=== PATIENT | female | born 1965 | race Caucasian/White ===

== ENCOUNTER 2020-04-03 10:21 | Emergency (ER) | payer OTHER ==
--- NOTE | 2020-04-03 12:16 | EDPHYS ---
Physician Documentation [facility] Name: Renata Raphael Age: 54 yrs Sex: Female : 1965 Arrival Date: 04/03/2020 Time: 10:23 Bed 23 Private MD: [place] Physician Stefano Dangelo HPI: 04/03 13:32 This 54 yrs old Female presents to ER via Ambulatory with complaints of snw Urinary Problem. 13:32 Onset: The symptoms/episode began/occurred gradually, 1.5 week(s) ago, and became snw persistent. Associated signs and symptoms: Pertinent positives: fatigue. Modifying factors: The patient symptoms are alleviated by nothing. The patient has experienced similar episodes in the past, multiple times. The patient has not recently seen a physician. Historical: - Allergies: 10:52 Demerol (Anaphylaxis); aa5 10:52 Vicodin; aa5 10:52 Percocet; aa5 10:52 NSAIDS; aa5 10:52 Latex, Natural Rubber; aa5 10:52 Tape; aa5 10:52 Augmentin; aa5 10:52 Benadryl; aa5 10:52 Bactrim; aa5 10:52 Versed; aa5 10:52 tramadol; aa5 10:52 BuSpar; aa5 10:52 Ciprofloxacin; aa5 10:52 Solu-Medrol; aa5 - PMHx: 10:52 CDiff; Elmo's disease; SIADH; Ovarian failure; Osteoporosis; aa5 - Immunization history:: Adult Immunizations unknown. - Social history:: Smoking status: Patient denies any tobacco usage or history of. ROS: 13:31 Constitutional: Negative for fever, chills, and weight loss, + malaise and generalized snw fatigue Eyes: Negative for injury, pain, redness, and discharge, ENT: Negative for injury, pain, and discharge, Neck: Negative for injury, pain, and swelling, Cardiovascular: Negative for chest pain, palpitations, and edema, Respiratory: Negative for shortness of breath, cough, wheezing, and pleuritic chest pain, Abdomen/GI: Negative for abdominal pain, nausea, vomiting, diarrhea, and constipation, MS/Extremity: Negative for injury and deformity, Skin: Negative for injury, rash, and discoloration, Neuro: Negative for headache, weakness, numbness, tingling, and seizure. 13:31 Back: Positive for flank pain, bilaterally. 13:31 : Positive for urinary symptoms, urinary frequency, small amounts, burning with urination, foul smelling urine. Exam: 13:30 Head/Face: Normocephalic, atraumatic. Eyes: Pupils equal round and reactive to light, snw extra-ocular motions intact. Lids and lashes normal. Conjunctiva and sclera are non-icteric and not injected. Cornea within normal limits. Periorbital areas with no swelling, redness, or edema. ENT: Nares patent. No nasal discharge, no septal abnormalities noted. Tympanic membranes are normal and external auditory canals are clear. Oropharynx with no redness, swelling, or masses, exudates, or evidence of obstruction, uvula midline. Mucous membranes moist. Neck: Trachea midline, no thyromegaly or masses palpated, and no cervical lymphadenopathy. Supple, full range of motion without nuchal rigidity, or vertebral point tenderness. No Meningismus. Chest/axilla: Normal chest wall appearance and motion. Nontender with no deformity. No lesions are appreciated. Cardiovascular: Regular rate and rhythm with a normal S1 and S2. No gallops, murmurs, or rubs. Normal PMI, no JVD. No pulse deficits. Respiratory: Lungs have equal breath sounds bilaterally, clear to auscultation and percussion. No rales, rhonchi or wheezes noted. No increased work of breathing, no retractions or nasal flaring. Abdomen/GI: Soft, non-tender, with normal bowel sounds. No distension or tympany. No guarding or rebound. No evidence of tenderness throughout. Skin: Warm, dry with normal turgor. Normal color with no rashes, no lesions, and no evidence of cellulitis. MS/ Extremity: Pulses equal, no cyanosis. Neurovascular intact. Full, normal range of motion. Neuro: Awake and alert, GCS 15, oriented to person, place, time, and situation. Cranial nerves II-XII grossly intact. Motor strength 5/5 in all extremities. Sensory grossly intact. Cerebellar exam normal. Normal gait. Psych: Awake, alert, with orientation to person, place and time. Behavior, mood, and affect are within normal limits. 13:30 Constitutional: The patient appears alert, awake. 13:30 Back: pain, that is mild, of the left mid back and right mid back, normal spinal alignment noted. Vital Signs: 10:47 BP 107 / 68; Pulse 76; Resp 18 S; Temp 98.6(O); Pulse Ox 99% on R/A; Weight 61.23 kg aa5 (R); Height 5 ft. 7 in. (170.18 cm) (R); 10:47 Body Mass Index 21.14 (61.23 kg, 170.18 cm) aa5 MDM: 11:23 Patient medically screened. [facility] 13:33 Data reviewed: vital signs, nurses notes. Data interpreted: Pulse oximetry: on room air snw is 99 %. Interpretation: acceptable. Counseling: I had a detailed discussion with the patient and/or guardian regarding: the historical points, exam findings, and any diagnostic results supporting the discharge/admit diagnosis, lab results, the need for outpatient follow up, to return to the emergency department if symptoms worsen or persist or if there are any questions or concerns that arise at home. ED course: has been taking stress dose steroids. 04/03 10:52 Order name: Urine Culture snw 04/03 10:52 Order name: Urine Microscopic Only; Complete Time: 12:32 snw 04/03 10:52 Order name: Urine Dipstick-Ancillary (obtain specimen); Complete Time: 11:31 snw 04/03 11:35 Order name: Urine Dipstick--Ancillary (enter results); Complete Time: 12:32 bd 04/03 11:35 Order name: Urine --Ancillary (enter results); Complete Time: 12:32 bd Administered Medications: 12:49 Drug: KeFLEX 500 mg Route: PO; aa5 12:49 Follow up: Response: Medication administered at discharge. aa5 Disposition: 16:33 Co-signature as Attending Physician, Stefano Dangelo MD I agree with the assessment and [facility] plan of care. Disposition: 04/03/20 12:16 Discharged to Home. Impression: Urinary tract infection, site not specified. - Condition is Stable. - Discharge Instructions: Elmo Disease, Urinary Tract Infection, Adult, Rehydration, Adult. - Prescriptions for Cortef 20 mg Oral tablet - take 1 tablet by ORAL route once daily with food; 15 tablet. Keflex 500 mg Oral Capsule - take 1 capsule by ORAL route every 8 hours for 10 days; 30 capsule. - Medication Reconciliation Form, Thank You Letter, Antibiotic Education, Prescription Opioid Use form. - Follow up: Private Physician; When: 1 - 2 days; Reason: Recheck today's complaints, Continuance of care, Re-evaluation by your physician. Follow up: Emergency Department; When: As needed; Reason: Worsening of condition. Signatures: Dispatcher [employer] EDStefano Arevalo MD MD cha Waters, Shelly, RETAIL CLERK-C RETAIL CLERK-Csnw Mia Mckinney, RN RN aa5 Corrections: (The following items were deleted from the chart) 12:49 12:16 04/03/2020 12:16 Discharged to Home. Impression: Urinary tract infection, site aa5 not specified. Condition is Stable. Forms are Medication Reconciliation Form, Thank You Letter, Antibiotic Education, Prescription Opioid Use. Follow up: Private Physician; When: 1 - 2 days; Reason: Recheck today's complaints, Continuance of care, Re-evaluation by your physician. Follow up: Emergency Department; When: As needed; Reason: Worsening of condition. snw
--- NOTE | 2020-04-03 12:16 | ER ---
Nurse's Notes [facility] Name: Renata Raphael Age: 54 yrs Sex: Female : 1965 Arrival Date: 04/03/2020 Time: 10:23 Bed 23 Private MD: Diagnosis: Urinary tract infection, site not specified Presentation: 04/03 10:47 Chief complaint: Patient states: burning with urination x 1 1/2 weeks. Coronavirus aa5 screen: Client denies travel out of the [place] in the last 14 days. At this time, the client does not indicate any symptoms associated with coronavirus-19. Ebola Screen: Patient negative for fever greater than or equal to 101.5 degrees Fahrenheit, and additional compatible Ebola Virus Disease symptoms. Initial Sepsis Screen: Does the patient meet any 2 criteria? No. Patient's initial sepsis screen is negative. Does the patient have a suspected source of infection? No. Patient's initial sepsis screen is negative. Risk Assessment: Do you want to hurt yourself or someone else? Patient reports no desire to harm self or others. Onset of symptoms was February 2020. 10:47 Method Of Arrival: Ambulatory aa5 10:47 Acuity: RENY 4 aa5 Triage Assessment: 10:55 General: Appears in no apparent distress. comfortable, Behavior is calm, cooperative. aa5 Pain: Denies pain. EENT: No signs and/or symptoms were reported regarding the EENT system. Neuro: Level of Consciousness is awake, alert, obeys commands, Oriented to person, place, time, situation. Cardiovascular: Patient's skin is warm and dry. Respiratory: Airway is patent Respiratory effort is even, unlabored, Respiratory pattern is regular, symmetrical. GI: No signs and/or symptoms were reported involving the gastrointestinal system. : Reports burning with urination. Derm: Skin is pink, warm \T\ dry. Musculoskeletal: Range of motion: intact in all extremities. Historical: - Allergies: 10:52 Demerol (Anaphylaxis); aa5 10:52 Vicodin; aa5 10:52 Percocet; aa5 10:52 NSAIDS; aa5 10:52 Latex, Natural Rubber; aa5 10:52 Tape; aa5 10:52 Augmentin; aa5 10:52 Benadryl; aa5 10:52 Bactrim; aa5 10:52 Versed; aa5 10:52 tramadol; aa5 10:52 BuSpar; aa5 10:52 Ciprofloxacin; aa5 10:52 Solu-Medrol; aa5 - PMHx: 10:52 CDiff; [place]'s disease; SIADH; Ovarian failure; Osteoporosis; aa5 - Immunization history:: Adult Immunizations unknown. - Social history:: Smoking status: Patient denies any tobacco usage or history of. Assessment: 12:48 Reassessment: Patient is alert, oriented x 3, equal unlabored respirations, skin aa5 warm/dry/pink. Vital Signs: 10:47 BP 107 / 68; Pulse 76; Resp 18 S; Temp 98.6(O); Pulse Ox 99% on R/A; Weight 61.23 kg aa5 (R); Height 5 ft. 7 in. (170.18 cm) (R); 10:47 Body Mass Index 21.14 (61.23 kg, 170.18 cm) aa5 ED Course: 10:23 Patient arrived in ED. rg4 10:34 [facility]els[facility]C [facility] snw 10:34 Stefano Dangelo MD is Attending Physician. snw 10:47 Arm band placed on. aa5 10:49 Triage completed. aa5 11:22 Patient has correct armband on for positive identification. Bed in low position. Call aa5 light in reach. Side rails up X 1. 11:30 Mia Mckinney, RN is Primary Nurse. aa5 12:48 No provider procedures requiring assistance completed. Patient did not have IV access aa5 during this emergency room visit. Administered Medications: 12:49 Drug: KeFLEX 500 mg Route: PO; aa5 12:49 Follow up: Response: Medication administered at discharge. aa5 Outcome: 12:16 Discharge ordered by . snw 12:48 Discharged to home ambulatory. aa5 12:48 Condition: stable 12:48 Discharge instructions given to patient, Instructed on discharge instructions, follow up and referral plans. medication usage, Demonstrated understanding of instructions, follow-up care, medications, Prescriptions given X 2. 12:49 Patient left the ED. aa5 Signatures: Kelsie Welch FNP-C CRACKER SPRAYER-Csnw Mia Mckinney, RN RN aa5 Maricarmen Chavira rg4
[2020-04-03 12:18] LABS: Urine Bacteria <20 /HPF (<20); Urine Mucus 1+ /HPF (NONE SEEN); Urine RBC <5 /HPF (NONE SEEN)
[2020-04-03 12:22] LABS: Urine Blood NEGATIVE (NEG); Urine Glucose NEGATIVE (NEG); Urine Protein NEGATIVE (NEG)
[2020-04-03 12:55] VITALS: BP 107/68; TEMP 98.6; O2SAT 99
[2020-04-03] MEDS ORDERED: CEPHALEXIN 250 MG CAP ONE (13:02)
== END 2020-04-03 12:49 | disposition home or self-care (01) ==
LOC: ER 10:21
DX: N39.0 Urinary tract infection, site not specified (principal); Z88.1 Allergy status to other antibiotic agents; Z88.3 Allergy status to other anti-infective agents; Z88.5 Allergy status to narcotic agent; Z88.6 Allergy status to analgesic agent; Z88.8 Allergy status to other drugs, medicaments and biological substances; Z91.040 Latex allergy status; Z91.048 Other nonmedicinal substance allergy status
CPT/HCPCS: 81003; 81015; 81025; 87086; 87088; 99283

== ENCOUNTER 2023-11-15 17:18 | Emergency (ER) | payer OTHER, SELFPAY ==
[2023-11-15] MEDS ORDERED: ONDANSETRON 4 MG/2 ML VIAL ONE (17:43)
[2023-11-15] MEDS ORDERED: MORPHINE 4 MG/ML SYR ONE ×2 (17:43→18:53)
[2023-11-15] MEDS ORDERED: NA CHLORIDE 0.9% 1,000 ML ONE (17:44)
[2023-11-15] MEDS ORDERED: FAMOTIDINE 20 MG/2 ML VIAL IV ONE (17:56)
[2023-11-15 18:01] LABS: Absolute Basophils 0.1 K/uL (0-0.5); Absolute Eosinophils 0.6 K/uL (0-0.5); Absolute Lymphocytes (CBC) 3.1 K/uL (0.7-4.9); Absolute Monocytes 0.9 K/uL (0.1-1.3); Absolute Neutrophil 4.6 K/uL (1.8-8.0); Basophils % 0.8 % (0-1.3); Eosinophils % 6.4 % (0-4.4); Hematocrit 43.9 % (36.0-45.0); Hemoglobin 14.7 g/dL (12.0-15.0); Lymphocytes % 33.4 % (15.3-44.8); MCH 29.3 pg (27.0-35.0); MCHC 33.6 g/dL (32.0-36.0); MCV 87.3 fL (80-100); MPV 9.3 fL (7.6-11.3); Monocytes % 9.8 % (3.3-12.3); Neutrophils % 49.6 % (41.7-73.7); Nucleated Red Blood Cells % 0.1 % (0-0); Platelets 222 thou/uL (152-406); RBC Red Blood Cell Count 5.03 M/uL (3.86-4.86); Red Cell Distribution Width 13.3 % (12.1-15.2)
[2023-11-15 18:13] LABS: Specific Gravity 1.009 (1.005-1.030)
[2023-11-15 18:14] LABS: Specific Gravity 1.009 (1.005-1.030); Sqamous Epithelial <5 /HPF (None Seen); Urine Bacteria None Seen /HPF (<20); Urine Bilirubin NEGATIVE (Negative); Urine Blood Negative (Negative); Urine Clarity Extremely Turbid (Clear); Urine Color Light-Yellow (Yellow); Urine Culture Reflex Order REFLEXED; Urine Glucose NEGATIVE (Negative); Urine Ketones NEGATIVE (Negative); Urine Microscopic Reflex YN ORDER UMIC; Urine Nitrite NEGATIVE (Negative); Urine Protein NEGATIVE (Negative); Urine Urobilinogen Normal (Normal); Urine WBC >50 /HPF (<5); Urine WBC Clump Rare /HPF (None Seen)
[2023-11-15 18:18] LABS: Albumin 3.7 g/dL (3.4-5.0); Albumin/Globulin Ratio 1.1 (1.1-1.8); Anion Gap 9.9 mEq/L (5.0-15.0); Bilirubin Total 0.4 mg/dL (0.2-1.0); Globulin 3.4 g/dL (2.3-3.5); Potassium 3.9 mEq/L (3.5-5.1); Protein, Total 7.1 g/dL (6.4-8.2)
[2023-11-15] MEDS ORDERED: CEFTRIAXONE 1000 MG/VIAL ONE (18:52)
[2023-11-15] MEDS ORDERED: HYDROCORTISONE SUC 100 MG INJ ONE (18:52)
[2023-11-15] MEDS ORDERED: PROMETHAZINE INJ 25 MG/ML AMP ONE (18:52)
--- NOTE | 2023-11-15 19:07 | RAD REPORT ---
[facility] - [facility]15/2023 6:51 pm CLINICAL HISTORY: FLANK PAIN COMPARISON: No comparisons TECHNIQUE: CT of the abdomen and pelvis was performed. All CT scans are performed using dose optimization technique as appropriate and may include automated exposure control or mA/KV adjustment according to patient size. FINDINGS: Lower chest: No acute abnormality. Trace pericardial effusion. Liver: No acute abnormality or suspicious lesions. Biliary: No biliary ductal dilatation. Stomach: No significant focal abnormality. Duodenum: No significant focal abnormality. Pancreas: No significant abnormality. Spleen: No significant abnormality. Adrenal: No suspicious lesions. Kidney/ureter: No renal calculi. Bilateral pelvicaliectasis but without nalini hydronephrosis. No def inite ureteral calculi. Two calculi present in the region of the right mid to distal ureter but these are favored vascular. The largest measures 6 millimeters. Retroperitoneum: No retroperitoneal adenopathy. Vascular: No aneurysm. Bowel: Normal appendix. Moderate stool in the cecum and ascending colon. No bowel obstruction .. Peritoneum: No ascites or free air. Bladder: Grossly unremarkable. Reproductive: No adnexal masses. Bones: No acute fracture. Other: n/a IMPRESSION: No acute intra-abdominal or pelvic finding. Calcifications along the course of the right ureter are favored vascular. No definite ureteral calculi identified.
[2023-11-15] MEDS ORDERED: CEPHALEXIN 250 MG CAP ONE (19:26)
--- NOTE | 2023-11-15 20:07 | EDPHYS ---
Physician Documentation [facility] Name: Renata Raphael Age: 58 yrs Sex: Female : 1965 Arrival Date: 11/15/2023 Time: 17:18 Bed 5 Private MD: ED Physician Stefano Dangelo HPI: 11/14 17:45 This 58 yrs old Female presents to ER via Ambulatory with complaints of Urinary cp Problem, Flank Pain, Abdominal Pain, Vomiting. 17:45 The patient complains of pain in the right flank. cp 17:45 Onset: The symptoms/episode began/occurred today. Associated signs and symptoms: cp Pertinent positives: nausea, vomiting. Historical: - Allergies: 17:38 Augmentin; aa5 17:38 Bactrim; aa5 17:38 Benadryl; aa5 17:38 BuSpar; aa5 17:38 Ciprofloxacin; aa5 17:38 Demerol (Anaphylaxis); aa5 17:38 Latex; aa5 17:38 NSAIDS; aa5 17:38 Percocet; aa5 17:38 Solu-Medrol; aa5 17:38 Tape; aa5 17:38 tramadol; aa5 17:38 Versed; aa5 17:38 Vicodin; aa5 - PMHx: 17:38 Elmo's disease; Cdiff; Osteoporosis; Ovarian failure; SIADH; Hypothyroidism; aa5 - PSHx: 17:38 Tonsillectomy; Appendectomy; large intestine adhesions removed; aa5 - Immunization history:: Adult Immunizations up to date. - Infectious Disease History:: Denies. - Social history:: Smoking status: Patient denies any tobacco usage or history of. ROS: 17:45 Constitutional: Negative for fever, cp 17:45 Abdomen/GI: Positive for nausea and vomiting, 17:45 Back: Positive for flank pain, on the right, Vital Signs: 17:28 BP 121 / 64; Pulse 82; Resp 20 S; Temp 97.8(TE); Pulse Ox 99% on R/A; Weight 63.5 kg aa5 (R); Height 5 ft. 7 in. (R); 17:56 BP 131 / 77; Pulse 85; Resp 18; Pulse Ox 100% on R/A; ld1 18:32 BP 102 / 55; Pulse 71; Resp 18; Pulse Ox 100% on R/A; ld1 20:07 BP 130 / 75; Pulse 75; Resp 18; Pulse Ox 99% ; Pain 0/10; [facility] 17:28 Body Mass Index 21.93 (63.50 kg, 170.18 cm) aa5 20:07 Pain Scale: Adult [facility] MDM: 17:31 Patient medically screened. cp 11/14 17:45 Order name: CBC with Diff; Complete Time: 18:33 cp 11/14 19:51 Interpretation: Normal except: RBC 5.03; EOSINOPHIL % 6.4; EOSA 0.6. cp 11/14 17:45 Order name: CMP; Complete Time: 18:33 cp 11/14 19:51 Interpretation: Normal except: NA 132; GLUC 115; BUN 20; CRE 1.31; GFR 48. cp 11/14 17:45 Order name: Lipase; Complete Time: 18:33 cp 11/14 17:45 Order name: Test, Urine; Complete Time: 18:33 cp 11/14 17:45 Order name: Urinalysis w/ reflexes; Complete Time: 18:33 cp 11/14 17:45 Order name: Lactate w/ 2H reflex if indic.; Complete Time: 18:33 cp 11/14 18:19 Order name: Urine Culture EDMS 11/14 18:35 Order name: CT Stone Protocol; Complete Time: 19:10 cp 11/14 17:45 Order name: IV Saline Lock; Complete Time: 17:54 cp 11/14 17:45 Order name: Labs collected and sent; Complete Time: 17:54 cp 11/14 19:52 Order name: PO challenge; Complete Time: 19:55 cp Administered Medications: 17:53 Drug: NS 0.9% IV 1000 ml IV at 1 bolus Per protocol; 1000 mL bolus Route: IV; Rate: 1 ld1 bolus; Site: left antecubital; 19:00 Follow up: Response: No adverse reaction; IV Status: Infusion continued; IV Intake: ld1 1000ml 17:54 Drug: Ondansetron IVP 4 mg IVP once; over 2 minutes Route: IVP; Site: left antecubital; ld1 18:59 Follow up: Response: No adverse reaction ld1 17:54 Drug: morphine IVP or IV 4 mg IVP once over 4 mins Route: IVP; Infused Over: 4 mins; ld1 Site: left antecubital; 18:59 Follow up: Response: No adverse reaction ld1 17:56 Drug: Famotidine IVP 20 mg IVP once; dilute with 10 mL 0.9% NaCl; give over 2 minutes ld1 Route: IVP; Site: left antecubital; 18:59 Follow up: Response: No adverse reaction ld1 18:58 Not Given (Patient Refused): rocephin1 grams IV at calculated rate once; Given slow IV cp push per pharmacy instructions 18:59 Drug: Solu-CORTEF IVP 100 mg IVP once Route: IVP; Site: left antecubital; ld1 19:00 Follow up: Response: No adverse reaction ld1 18:59 Drug: morphine IVP or IV 4 mg IVP once over 4 mins Route: IVP; Infused Over: 4 mins; ld1 Site: left antecubital; 19:00 Follow up: Response: No adverse reaction ld1 18:59 Drug: Promethazine IVP 12.5 mg IVP once Route: IVP; Site: left antecubital; ld1 19:00 Follow up: Response: No adverse reaction ld1 19:27 Drug: Cephalexin PO 500 mg PO once Route: PO; jh8 20:25 Follow up: Response: No adverse reaction cp4 Disposition Summary: 11/15/23 20:07 Discharge Ordered Notes: Location: Home cp Problem: new cp Symptoms: have improved cp Condition: Stable cp Diagnosis - UTI/ Urinary tract infection, site not specified cp Followup: cp - With: Private Physician - When: 2 - 3 days - Reason: Recheck today's complaints Discharge Instructions: - Discharge Summary Sheet cp - Urinary Tract Infection, Adult cp Forms: - Medication Reconciliation Form cp - Antibiotic Education cp - Prescription Opioid Use cp - Patient Portal Instructions cp - Leadership Thank You Letter cp Prescriptions: - acetaminophen-codeine 300-30 mg Oral tablet - take 2 tablet ORAL route 3 times per day as needed for pain; 12 tablet; cp Refills: 0, Product Selection Permitted - Cephalexin 500 mg Oral Capsule - take 1 capsule ORAL route every 8 hours for 10 days; 30 capsule; Refills: 0, cp Product Selection Permitted - promethazine 25 mg Oral Tablet - take 1 tablet ORAL route every 6 hours As needed; 20 tablet; Refills: 0, cp Product Selection Permitted Signatures: Dispatcher [employer] Bethanie Dori, RN RN aa5 Stefano Olsen PA PA cp Sims, Lauren, RN RN ld1 Owen Smith RN RN jh8 Annie Espinosa cp4 Corrections: (The following items were deleted from the chart) 17:47 17:46 Test, Urine+UC.LAB.BRZ ordered. EDMS EDMS 17:48 17:46 CBC+H.LAB.BRZ ordered. EDMS EDMS 17:48 17:46 COMPREHENSIVE METABOLIC PANEL+C.LAB.BRZ ordered. EDMS EDMS 17:48 17:46 LIPASE+C.LAB.BRZ ordered. EDMS EDMS 17:48 17:46 Urinalysis+U.LAB.BRZ ordered. EDMS EDMS 17:48 17:46 Cortisol+C.LAB.BRZ ordered. EDMS EDMS 17:48 17:46 LACTATE+C.LAB.BRZ ordered. EDMS EDMS
--- NOTE | 2023-11-15 20:07 | ER ---
Nurse's Notes [facility] Name: Renata Raphael Age: 58 yrs Sex: Female : 1965 Arrival Date: 11/15/2023 Time: 17:18 Bed 5 Private MD: Diagnosis: UTI/ Urinary tract infection, site not specified Presentation: 11/14 17:28 Chief complaint: Patient states: right low back pain, lower abd pain, nausea, vomiting aa5 today. Pt also reports foul smelling urine since yesterday. 17:28 Coronavirus screen: vomiting. Ebola Screen: Patient denies travel to an Ebola-affected [facility] area in the 21 days before illness onset. Initial Sepsis Screen: Does the patient meet any 2 criteria? No. Patient's initial sepsis screen is negative. Does the patient have a suspected source of infection? No. Patient's initial sepsis screen is negative. Risk Assessment: Do you want to hurt yourself or someone else? Patient reports no desire to harm self or others. Onset of symptoms was November 15, 2023. 17:28 Acuity: RENY 3 aa5 17:28 Method Of Arrival: Ambulatory aa5 Historical: - Allergies: 17:38 Augmentin; aa5 17:38 Bactrim; aa5 17:38 Benadryl; aa5 17:38 BuSpar; aa5 17:38 Ciprofloxacin; aa5 17:38 Demerol (Anaphylaxis); aa5 17:38 Latex; aa5 17:38 NSAIDS; aa5 17:38 Percocet; aa5 17:38 Solu-Medrol; aa5 17:38 Tape; aa5 17:38 tramadol; aa5 17:38 Versed; aa5 17:38 Vicodin; aa5 - PMHx: 17:38 Jerome's disease; Cdiff; Osteoporosis; Ovarian failure; SIADH; Hypothyroidism; aa5 - PSHx: 17:38 Tonsillectomy; Appendectomy; large intestine adhesions removed; aa5 - Immunization history:: Adult Immunizations up to date. - Infectious Disease History:: Denies. - Social history:: Smoking status: Patient denies any tobacco usage or history of. Screenin:[facility] ED Fall Risk Assessment (Adult) History of falling in the last 3 months, ld1 including since admission No falls in past 3 months (0 pts) Confusion or Disorientation No (0 pts) Intoxicated or Sedated No (0 pts) Impaired Gait No (0 pts) Mobility Assist Device Used No (0 pt) Altered Elimination No (0 pt) Score/Fall Risk Level 0 - 2 = Low Risk Oriented to surroundings, Maintained a safe environment, Educated pt \T\ family on fall prevention, incl call for assistance when getting out of bed, Assessed \T\ reinforced patient's understanding of fall precautions, Provided non-skid footwear, Hourly rounding (assess needs \T\ fall precautionary measures) done, Used ambulatory aids as needed (educated on \T\ assisted with), Used gait belt as appropriate. Abuse screen: Denies threats or abuse. Denies injuries from another. Nutritional screening: No deficits noted. Tuberculosis screening: No symptoms or risk factors identified. Assessment: 17:56 General: Appears in no apparent distress. comfortable, Behavior is calm, cooperative, ld1 appropriate for age. Pain: Complains of pain in right low back Pain radiates to right lower quadrant Pain currently is 8 out of 10 on a pain scale. Quality of pain is described as sharp, shooting, throbbing, Pain began suddenly, Is continuous. Neuro: Level of Consciousness is awake, alert, obeys commands, Oriented to person, place, time, situation, Appropriate for age. Cardiovascular: Capillary refill < 3 seconds Patient's skin is warm and dry. Rhythm is sinus rhythm. Respiratory: Airway is patent Respiratory effort is even, unlabored. GI: Abdomen is round non-distended, Bowel sounds present X 4 quads. Abd is soft Abd is non tender. : No signs and/or symptoms were reported regarding the genitourinary system. EENT: No signs and/or symptoms were reported regarding the EENT system. Derm: No signs and/or symptoms reported regarding the dermatologic system. Musculoskeletal: No signs and/or symptoms reported regarding the musculoskeletal system. Vital Signs: 17:28 BP 121 / 64; Pulse 82; Resp 20 S; Temp 97.8(TE); Pulse Ox 99% on R/A; Weight 63.5 kg aa5 (R); Height 5 ft. 7 in. (R); 17:56 BP 131 / 77; Pulse 85; Resp 18; Pulse Ox 100% on R/A; ld1 18:32 BP 102 / 55; Pulse 71; Resp 18; Pulse Ox 100% on R/A; ld1 20:07 BP 130 / 75; Pulse 75; Resp 18; Pulse Ox 99% ; Pain 0/10; 8 17:28 Body Mass Index 21.93 (63.50 kg, 170.18 cm) aa5 20:07 Pain Scale: Adult [facility] ED Course: 17:21 Patient arrived in ED. im 17:28 Arm band placed on Patient placed in an exam room, on a stretcher. aa5 17:31 Stefano Olsen PA is PHCP. cp 17:31 Stefano Dangelo MD is Attending Physician. cp 17:40 Triage completed. aa5 17:45 Sommer Ty, RN is Primary Nurse. ar6 17:54 Urinalysis w/ reflexes Sent. ld1 17:54 Test, Urine Sent. ld1 17:54 Cortisol Sent. ld1 17:54 Lactate w/ 2H reflex if indic. Sent. ld1 17:56 Patient has correct armband on for positive identification. Placed in gown. Bed in low ld1 position. Call light in reach. Side rails up X2. Pulse ox on. NIBP on. Door closed. Noise minimized. Warm blanket given. 17:56 No provider procedures requiring assistance completed. Inserted saline lock: 20 gauge ld1 in left antecubital area, using aseptic technique. Blood collected. Flushed with 10 mL NS. 18:54 CT Stone Protocol In Process Unspecified. EDMS 20:25 Provided Education on: urinary tract infection. cp4 20:25 intact, bleeding controlled, No redness/swelling at site. Pressure dressing applied. cp4 Administered Medications: 17:53 Drug: NS 0.9% IV 1000 ml IV at 1 bolus Per protocol; 1000 mL bolus Route: IV; Rate: 1 ld1 bolus; Site: left antecubital; 19:00 Follow up: Response: No adverse reaction; IV Status: Infusion continued; IV Intake: ld1 1000ml 17:54 Drug: Ondansetron IVP 4 mg IVP once; over 2 minutes Route: IVP; Site: left antecubital; ld1 18:59 Follow up: Response: No adverse reaction ld1 17:54 Drug: morphine IVP or IV 4 mg IVP once over 4 mins Route: IVP; Infused Over: 4 mins; ld1 Site: left antecubital; 18:59 Follow up: Response: No adverse reaction ld1 17:56 Drug: Famotidine IVP 20 mg IVP once; dilute with 10 mL 0.9% NaCl; give over 2 minutes ld1 Route: IVP; Site: left antecubital; 18:59 Follow up: Response: No adverse reaction ld1 18:58 Not Given (Patient Refused): rocephin1 grams IV at calculated rate once; Given slow IV cp push per pharmacy instructions 18:59 Drug: Solu-CORTEF IVP 100 mg IVP once Route: IVP; Site: left antecubital; ld1 19:00 Follow up: Response: No adverse reaction ld1 18:59 Drug: morphine IVP or IV 4 mg IVP once over 4 mins Route: IVP; Infused Over: 4 mins; ld1 Site: left antecubital; 19:00 Follow up: Response: No adverse reaction ld1 18:59 Drug: Promethazine IVP 12.5 mg IVP once Route: IVP; Site: left antecubital; ld1 19:00 Follow up: Response: No adverse reaction ld1 19:27 Drug: Cephalexin PO 500 mg PO once Route: PO; jh8 20:25 Follow up: Response: No adverse reaction cp4 Medication: 17:56 VIS not applicable for this client. ld1 Intake: 19:00 IV: 1000ml; Total: 1000ml. ld1 Outcome: 20:07 Discharge ordered by . cp 20:25 Discharged to home ambulatory, cp4 20:25 Condition: stable 20:25 Discharge instructions given to patient, Instructed on discharge instructions, follow up and referral plans. medication usage, Demonstrated understanding of instructions, follow-up care, medications, Prescriptions given X 3, 20:26 Patient left the ED. cp4 Signatures: Dispatcher [employer] EDMS Mia Mckinney RN RN aa5 Stefano Olsen PA PA cp Aretha Lee RN RN ld1 Silvia Contreras Christina cp4 Owen Smith RN RN jh8 Sommer Ty RN RN ar6
[2023-11-15 20:33] VITALS: TEMP 97.8
[2023-11-15 20:36] VITALS: BP 130/75; O2SAT 99
== END 2023-11-15 20:26 | disposition home or self-care (01) ==
LOC: ER 17:18
DX: N39.0 Urinary tract infection, site not specified (principal)
CPT/HCPCS: 36415; 74176; 76377; 80053; 81001; 81025; 83605; 83690; 85025; 87086; 87088; 96361; 96374; 96375; 99284; J0696; J1720; J2405; J2550; J7030